=== PATIENT | female | born 1985 | race Caucasian/White ===

== ENCOUNTER → 2021-06-20 19:50 | Observation (INO) ==
[2021-06-20 16:03] LABS: Basophils # 0.1 K/mcL (0.0-0.2); Basophils % 0.4 %; Eosinophils # 0.2 K/mcL (0.0-0.6); Eosinophils % 1.7 %; Hematocrit 33.7 % (35.3-44.9); Immature Granulocytes % 0.7 % (0-4); Lymphocytes % 16.4 %; Mean Corpuscular HGB Conc 32.6 g/dL (31.6-35.5); Mean Corpuscular Hemoglobin 29.5 pg (28.0-33.3); Mean Corpuscular Volume 90.3 fL (83.0-100.0); Monocytes # 0.7 K/mcL (0.0-1.3); Monocytes % 5.5 %; Platelet Count 258 K/mcL (140-400); Red Blood Count 3.73 M/mcL (3.82-4.97); Red Cell Distribution Width 14.6 % (11.5-14.5); Segmented Neutrophils % 75.3 %
[2021-06-20 16:47] LABS: Protein/Creatinine Ratio,Urine 0.21 mg/mg (0.00-0.20)
[2021-06-20 18:02] LABS: Alanine Aminotransferase 11 Units/L (7-52); Aspartate Amino Transferase 15 Units/L (13-39); BUN/Creatinine Ratio 8 (6-26); Blood Urea Nitrogen 5 mg/dL (6-20); Lactate Dehydrogenase 124 Units/L (140-271); Uric Acid 4.5 mg/dL (2.3-7.6); eGFR For African Americans > 60 (> 60); eGFR For Non-African Americans > 60 (> 60)
[~2021-06-20 19:50] MED LIST: *HR* Labetalol 20 MG/4 ML SYRINGE IVP ONE
== END | disposition home or self-care (01) ==
LOC: 1NENULAB
PROVIDERS: ADMIT Obstetrics & Gynecology; ATTEND Obstetrics & Gynecology

== ENCOUNTER → 2021-08-01 12:05 | Observation (INO) ==
[2021-07-31 16:57] LABS: Basophils # 0.1 K/mcL (0.0-0.2); Basophils % 0.7 %; Eosinophils # 0.2 K/mcL (0.0-0.6); Eosinophils % 1.8 %; Hematocrit 33.2 % (35.3-44.9); Immature Granulocytes % 0.9 % (0-4); Lymphocytes # 2.1 K/mcL (0.6-4.6); Mean Corpuscular HGB Conc 33.1 g/dL (31.6-35.5); Mean Corpuscular Hemoglobin 30.2 pg (28.0-33.3); Mean Corpuscular Volume 91.2 fL (83.0-100.0); Mean Platelet Volume 12.2 fL (9.4-12.4); Monocytes # 0.7 K/mcL (0.0-1.3); Neutrophils # 8.4 K/mcL (1.6-8.9); Platelet Count 231 K/mcL (140-400); Red Blood Count 3.64 M/mcL (3.82-4.97); Red Cell Distribution Width 14.8 % (11.5-14.5); Segmented Neutrophils % 72.6 %; White Blood Count 11.6 K/mcL (4.3-11.1)
[2021-07-31 17:17] LABS: Protein/Creatinine Ratio,Urine 0.32 mg/mg (0.00-0.20)
[2021-07-31 17:20] LABS: Alanine Aminotransferase 15 Units/L (7-52); Aspartate Amino Transferase 19 Units/L (13-39); BUN/Creatinine Ratio 8 (6-26); Blood Urea Nitrogen 5 mg/dL (6-20); Uric Acid 4.7 mg/dL (2.3-7.6); eGFR For African Americans > 60 (> 60); eGFR For Non-African Americans > 60 (> 60)
[2021-07-31 18:23] LABS: Lactate Dehydrogenase 130 Units/L (140-271)
[~2021-08-01 12:05] MED LIST changes: -*HR* Labetalol 20 MG/4 ML SYRINGE IVP ONE; +Betamethasone Acet/SodPhos 30 MG/5 ML VIAL IM SCH; +FLU Vac QV 21-22 (6Month+)/PF 0.5 ML SYRINGE IM ONE
== END | disposition short-term general hospital (02) ==
LOC: 1NENULAB
PROVIDERS: ADMIT Advanced Practice Midwife; ATTEND Advanced Practice Midwife

== ENCOUNTER 2021-09-13 10:58 | Inpatient (IN) ==
[2021-09-13] MEDS ORDERED: *HR* Labetalol 20 MG/4 ML SYRINGE IVP PRN ×2 (11:49)
[2021-09-13] MEDS ORDERED: *HR* Labetalol 20 MG/4 ML SYRINGE IVP STA (11:49)
[2021-09-13] MEDS ORDERED: Oxytocin 20 units/ LR 1000 mL 20 UNIT/1,000 ML BAG IVC ONE (11:54)
[2021-09-13] MEDS ORDERED: Famotidine 20 MG/2 ML VIAL IVP ONE (11:54)
[2021-09-13] MEDS ORDERED: Azithromycin 500 MG in 0.9 % Sodium Chloride 250 ML IVPB PRN (11:54)
[2021-09-13] MEDS ORDERED: Clindamycin 900 MG/50 ML 900 MG/50 ML IV.SOLN IVPB ONE (11:54)
[2021-09-13] MEDS ORDERED: Metoclopramide 10 MG/2 ML VIAL IVP ONE (11:54)
[2021-09-13] MEDS ORDERED: Ringers Solution, Lactated 1,000 ML IVC ONE (11:54)
[2021-09-13] MEDS ORDERED: *HR* Labetalol 20 MG/4 ML SYRINGE IVP ONE (11:57)
[2021-09-13] MEDS ORDERED: Ringers Solution, Lactated 1,000 ML ONE (11:59)
[2021-09-13] MEDS ORDERED: *HR* HYDROmorphone PF 0.5 MG/0.5 ML SYRINGE IVP PRN (11:59)
[2021-09-13] MEDS ORDERED: Ondansetron 4 MG/2 ML VIAL IVP PRN ×2 (11:59→17:02)
[2021-09-13] MEDS ORDERED: Promethazine 6.25 MG in Water for inj. (sterile) 20 ML IVPB PRN (11:59)
[2021-09-13] MEDS ORDERED: Oxytocin 20 units/ LR 1000 mL 20 UNIT/1,000 ML BAG IVC SCH ×2 (12:00→17:02)
[2021-09-13] MEDS ORDERED: *HR* FentaNYL (PF) 100 MCG/2 ML VIAL ONE (12:20)
[2021-09-13] MEDS ORDERED: *HR* Morphine Sulfate/PF 10 MG/10 ML AMPUL ONE (12:20)
[2021-09-13] MEDS ORDERED: EPHEDrine 50 MG/ML VIAL ONE (12:20)
[2021-09-13] MEDS ORDERED: Ondansetron 4 MG/2 ML VIAL ONE (12:20)
[2021-09-13] MEDS ORDERED: Acetaminophen IV 1,000 MG/100 ML BAG IVPB ONE (12:21)
[2021-09-13] MEDS ORDERED: Ketorolac 30 MG/ML VIAL ONE (12:21)
[2021-09-13 12:22] LABS: Mean Corpuscular Volume 90.6 fL (83.0-100.0)
[2021-09-13 12:24] LABS: Basophils # 0.1 K/mcL (0.0-0.2); Eosinophils # 0.2 K/mcL (0.0-0.6); Eosinophils % 2.7 %; Hematocrit 37.4 % (35.3-44.9); Hemoglobin 12.5 g/dL (11.5-15.4); Immature Granulocytes % 0.8 % (0-4); Immature Platelets 17.6 % (1.1-6.1); Lymphocytes # 1.8 K/mcL (0.6-4.6); Lymphocytes % 21.9 %; Mean Corpuscular HGB Conc 33.4 g/dL (31.6-35.5); Mean Corpuscular Hemoglobin 30.3 pg (28.0-33.3); Mean Platelet Volume 13.5 fL (9.4-12.4); Monocytes # 0.6 K/mcL (0.0-1.3); Monocytes % 6.8 %; Neutrophils # 5.5 K/mcL (1.6-8.9); Platelet Count 166 K/mcL (140-400); Red Blood Count 4.13 M/mcL (3.82-4.97); Red Cell Distribution Width 13.7 % (11.5-14.5); Segmented Neutrophils % 66.8 %; White Blood Count 8.3 K/mcL (4.3-11.1)
[2021-09-13 12:31] LABS: Creatinine,Urine 83 mg/dL; Protein/Creatinine Ratio,Urine 2.22 mg/mg (0.00-0.20)
[2021-09-13 12:56] LABS: Influenza A PCR Negative (Negative); Influenza B PCR Negative (Negative); Resp. Syncytial Virus PCR Negative (Negative); SARS-CoV-2 by PCR (In House) Negative (Negative)
[2021-09-13] MEDS ORDERED: Calcium Gluconate 1,000 MG/10 ML VIAL IVP PRN (14:16)
[2021-09-13] MEDS ORDERED: Magnesium Sulf 20 gm/SW 500mL 20 GM/500 ML IV.SOLN IVC SCH (14:30)
[2021-09-13] MEDS ORDERED: NIFEdipine XL (24 HR) 30 MG TAB.ER.24 PO SCH ×2 (15:17→16:30)
[2021-09-13] MEDS ORDERED: NIFEdipine XL (24 HR) 30 MG TAB.ER.24 PO ONE (15:17)
[2021-09-13 15:40] LABS: Alanine Aminotransferase 18 Units/L (7-52); Aspartate Amino Transferase 23 Units/L (13-39); BUN/Creatinine Ratio 8 (6-26); Blood Urea Nitrogen 7 mg/dL (6-20); Lactate Dehydrogenase 175 Units/L (140-271); Uric Acid 6.6 mg/dL (2.3-7.6); eGFR For African Americans > 60 (> 60); eGFR For Non-African Americans > 60 (> 60)
[2021-09-13 15:45] LABS: Amphetamine Screen,Urine Negative ng/mL (Cutoff=1000); Barbiturate Screen,Urine Negative ng/mL (Cutoff=200); Benzodiazepines Screen,Urine Negative ng/mL (Cutoff=200); Cannabinoid Screen,Urine Negative ng/mL (Cutoff = 50); Cocaine Screen,Urine Negative ng/mL (Cutoff= 300); Opiate Screen,Urine Negative ng/mL (Cutoff=300)
[2021-09-13] MEDS ORDERED: Ringers Solution, Lactated 500 ML ONE (16:28)
[2021-09-13] MEDS ORDERED: Rho Immune Globulin 1,500 UNIT SYRINGE IM ONE (17:02)
[2021-09-13] MEDS ORDERED: Acetaminophen 325 MG TABLET PO SCH (17:02)
[2021-09-13] MEDS ORDERED: Ibuprofen 600 MG TABLET PO SCH (17:02)
[2021-09-13] MEDS ORDERED: Clindamycin 900 MG/50 ML 900 MG/50 ML IV.SOLN IVPB SCH (17:02)
[2021-09-13] MEDS ORDERED: Metoclopramide 10 MG/2 ML VIAL IVP PRN (17:02)
[2021-09-13] MEDS ORDERED: Simethicone 80 MG TAB.CHEW PO PRN (17:02)
[2021-09-13] MEDS: Ibuprofen 600 MG TABLET PO SCH (20:27)
[2021-09-13] MEDS: metroNIDAZOLE 500 MG TABLET PO SCH (20:28)
[2021-09-13] MEDS: Acetaminophen 325 MG TABLET PO SCH (20:28)
[2021-09-13] MEDS: Clindamycin 900 MG/50 ML 900 MG/50 ML IV.SOLN IVPB SCH (21:47)
[2021-09-14] MEDS: Magnesium Sulf 20 gm/SW 500mL 20 GM/500 ML IV.SOLN IVC SCH ×2 (01:14→11:19)
[2021-09-14] MEDS: Acetaminophen 325 MG TABLET PO SCH ×3 (02:54→20:54)
[2021-09-14] MEDS: Ibuprofen 600 MG TABLET PO SCH ×4 (02:54→20:54)
[2021-09-14] MEDS: *HR* OxyCODONE Immed Rel 5 MG TABLET PO PRN ×3 (04:00→21:57)
[2021-09-14] MEDS: Clindamycin 900 MG/50 ML 900 MG/50 ML IV.SOLN IVPB SCH ×2 (05:24→13:49)
[2021-09-14 05:32] LABS: Basophils # 0.1 K/mcL (0.0-0.2); Basophils % 0.6 %; Eosinophils # 0.1 K/mcL (0.0-0.6); Eosinophils % 0.7 %; Hematocrit 27.9 % (35.3-44.9); Immature Granulocytes % 0.7 % (0-4); Lymphocytes % 17.4 %; Mean Corpuscular HGB Conc 34.8 g/dL (31.6-35.5); Mean Corpuscular Volume 89.1 fL (83.0-100.0); Mean Platelet Volume 12.4 fL (9.4-12.4); Monocytes # 0.9 K/mcL (0.0-1.3); Monocytes % 7.6 %; Neutrophils # 8.3 K/mcL (1.6-8.9); Platelet Count 130 K/mcL (140-400); Red Blood Count 3.13 M/mcL (3.82-4.97); Red Cell Distribution Width 13.5 % (11.5-14.5); White Blood Count 11.4 K/mcL (4.3-11.1)
[2021-09-14 05:42] LABS: Hemoglobin 9.7 g/dL (11.5-15.4)
[2021-09-14] MEDS: NIFEdipine XL (24 HR) 60 MG TAB.ER.24 PO SCH ×2 (07:37→11:20)
[2021-09-14] MEDS ORDERED: NIFEdipine XL (24 HR) 30 MG TAB.ER.24 PO ONE (09:05)
[2021-09-14] MEDS: Prenatal Vit/FA 1 EACH TABLET PO SCH (09:13)
[2021-09-14] MEDS: metroNIDAZOLE 500 MG TABLET PO SCH ×3 (09:13→20:55)
[2021-09-15] MEDS: *HR* OxyCODONE Immed Rel 5 MG TABLET PO PRN (04:13)
[2021-09-15] MEDS: Acetaminophen 325 MG TABLET PO SCH ×3 (04:14→21:14)
[2021-09-15] MEDS: Ibuprofen 600 MG TABLET PO SCH ×3 (04:15→21:15)
[2021-09-15] MEDS ORDERED: *HR* Labetalol 20 MG/4 ML SYRINGE IVP ONE (04:29)
[2021-09-15] MEDS: NIFEdipine XL (24 HR) 30 MG TAB.ER.24 PO SCH (05:26)
[2021-09-15] MEDS: metroNIDAZOLE 500 MG TABLET PO SCH (10:12)
[2021-09-15] MEDS: Prenatal Vit/FA 1 EACH TABLET PO SCH (10:12)
[2021-09-15] MEDS ORDERED: Rho Immune Globulin 1,500 UNIT SYRINGE IM ONE (15:00)
[2021-09-16] MEDS: Acetaminophen 325 MG TABLET PO SCH ×2 (03:20→15:12)
[2021-09-16] MEDS: Ibuprofen 600 MG TABLET PO SCH ×3 (03:21→15:12)
[2021-09-16 03:43] LABS: Basophils # 0.1 K/mcL (0.0-0.2); Basophils % 0.8 %; Eosinophils # 0.3 K/mcL (0.0-0.6); Eosinophils % 2.4 %; Hematocrit 28.1 % (35.3-44.9); Hemoglobin 9.2 g/dL (11.5-15.4); Lymphocytes % 28.3 %; Mean Corpuscular HGB Conc 32.7 g/dL (31.6-35.5); Mean Corpuscular Hemoglobin 29.7 pg (28.0-33.3); Mean Corpuscular Volume 90.6 fL (83.0-100.0); Monocytes # 0.7 K/mcL (0.0-1.3); Monocytes % 6.8 %; Neutrophils # 6.4 K/mcL (1.6-8.9); Platelet Count 147 K/mcL (140-400); Red Cell Distribution Width 13.9 % (11.5-14.5); Segmented Neutrophils % 60.7 %; White Blood Count 10.5 K/mcL (4.3-11.1)
[2021-09-16 04:03] LABS: Alanine Aminotransferase 22 Units/L (7-52); Aspartate Amino Transferase 20 Units/L (13-39); BUN/Creatinine Ratio 17 (6-26); Blood Urea Nitrogen 11 mg/dL (6-20); Lactate Dehydrogenase 180 Units/L (140-271); Uric Acid 5.5 mg/dL (2.3-7.6); eGFR For African Americans > 60 (> 60); eGFR For Non-African Americans > 60 (> 60)
[2021-09-16] MEDS: NIFEdipine XL (24 HR) 30 MG TAB.ER.24 PO SCH (05:28)
[2021-09-16] MEDS: Prenatal Vit/FA 1 EACH TABLET PO SCH (09:41)
[2021-09-16 16:19] VITALS: BP 135/102; PULSE 101; TEMP 97.7; O2SAT 99
== END 2021-09-16 16:47 | disposition home or self-care (01) | DRG 785 ==
LOC: 1NENULAB → INTOOBSV 10:58 → 1NENUOBS 17:02
PROVIDERS: ADMIT Obstetrics & Gynecology; ATTEND Obstetrics & Gynecology